=== PATIENT | male | born 1995 | race Caucasian/White ===

== ENCOUNTER 2025-01-01 10:45 | Outpatient (CLI) | payer OTHER, SELFPAY ==
--- OUTSIDE RECORDS SUMMARY | 2025-01-01 10:49 | XMS_ITS | Clinical Summary ---
[facility] Address [address] [place] [address] Care Team Providers Care Quilting Machine Helper Name Role Phone Provider, No Known Primary Care Provider [phone] Allergies No known active allergies Medications aspirin 325 MG EC tablet Take 1 tablet by mouth Daily. 14 tablet 11/09/2024 2:36 PM EDT 11/09/2024 Active ibuprofen (ADVIL,MOTRIN) 800 MG tablet Take 1 tablet by mouth Every 6 (Six) Hours As Needed. 90 tablet 11/09/2024 2:36 PM EDT 11/09/2024 Active oxyCODONE-acetam inophen (Percocet) 5-325 MG per tablet Take 1 tablet by mouth Every 6 (Six) Hours As Needed. 30 tablet 11/09/2024 2:36 PM EDT 11/09/2024 Active Active Problems No known active problems Social History Tobacco Use Types Packs/Day Years Used Date Smoking Tobacco: Never Smokeless Tobacco: Never Alcohol Use Standard Drinks/Week Comments No 0 (1 standard drink = 0.6 oz pur e alcohol) Abuse Screen Answer Date Recorded Feels Unsafe at Home or Work/School no 09/14/2024 Feels Threatened by Someone no 09/02 Does Anyone Try to Keep You From Having Contact with Others or Doing Things Outside Your Home? no 09/14/2024 Physical Signs of Abuse Present no 09/14/2024 Sex and Gender Information Value Date Recorded Sex Assigned at Not on file Legal Sex Male 8:30 PM EDT Gender Identity Not on file Sexual Orientation Not on file Last Filed Vital Signs Vital Sign Reading Time Taken Comments Blood Pressure 135/70 09/14/2024 1:53 AM EDT Pulse 70 09/14/2024 1:53 AM EDT Temperature 37.1 C (98.7 F) 09/14/2024 1:53 AM EDT Respiratory Rate 20 09/14/2024 1:53 AM EDT Oxygen Saturation 98% 09/14/2024 1:53 AM EDT Inhaled Oxygen Concentration - - Weight 127 kg (280 lb) 09/13/2024 11:06 PM EDT Height 190.5 cm (6' 3 ) 09/13/2024 11:06 PM EDT Body Mass Index 35 09/13/2024 11:06 PM EDT Plan of Treatment Health Maintenance Due Date Last Done Comments ANNUAL PHYSICAL 12/27/2016 HEPATITIS C SCREENING 12/27/2016 INFLUENZA VACCINE 11/02/2024 01/02/2018 TDAP/TD VACCINES (3 - Td or Tdap) 11/02/2027 11/01/2017, 01/20/2005 Pneumococcal Vaccine 0-49 Aged Out No longer eligible based on patient's age to complete this topic Insurance Member Subscriber Plan / Payer (Ef fective 2024-Present) Name:James Michael Relation to Subscriber:Self Name:James Michael Payer ID:[id number] (NAIC) Type:Not on file Address: [place] [id number] [address] [place] Care Teams Quilting Machine Helper Relationship Specialty Start Date End Date Provider, [place] [address] PCP - General 08/25/15
--- NOTE | 2025-01-01 10:50 | XR_ITS ---
FINAL REPORT CLINICAL HISTORY: DEGENERATIVE DISC NO PRIOR FILMS COMPARISON: None FINDINGS: CERVICAL SPINE 3 views of the cervical spine were obtained. There is no acute fracture. There is no malalignment. The vertebrae are normal in height. The disc spaces are preserved. IMPRESSION: No acute process. LUMBAR SPINE 3 views of the lumbar spine were obtained. There is no acute fracture. There is mild to moderate disc space narrowing. There is grade 1 spondylolisthesis of L5 on S1. There is moderate facet sclerosis. IMPRESSION: Hypertrophic changes of degenerative disc disease L5-S1 with associated degenerative spondylolisthesis. Reviewed, Interpreted and Dictated by Amandeep Russell MD Transcribed by Amy Vogel Authenticated and [facility]
== END 2025-01-01 23:59 | disposition home or self-care (01) ==
LOC: RAD 10:47
PROVIDERS: Visit Provider Chiropractor
DX: M43.17 Spondylolisthesis, lumbosacral region (principal); M47.817 Spondylosis without myelopathy or radiculopathy, lumbosacral region; M51.379 Other intervertebral disc degeneration, lumbosacral region without mention of lumbar back pain or lower extremity pain; M50.30 Other cervical disc degeneration, unspecified cervical region
CPT/HCPCS: 72083